=== PATIENT | male | born 1965 | race Two or more races ===

== ENCOUNTER 2024-10-31 05:39 | Day surgery (SDC) | payer OTHER ==
[~2024-10-31] VITALS: Ht 172.7 cm; Wt 89.1 kg
[2024-10-31] VITALS (8 sets, daily range): BP systolic 98–118; BP diastolic 46–68; PULSE 57–83; RESP 10–16; TEMP 98.3; O2SAT 93–100
[2024-10-31] MEDS: ceFAZolin 2gm/dext,iso 50mL 50 ML IV ONE (05:30)
[~2024-10-31 05:39] MED LIST: AMLO2.5T4 PO; ROSU20TA98 PO
--- NOTE | 2024-10-31 06:28 | ELECTROCARDIOGRAPH REPORT ---
[place] Test Date: 2024-10-31 Test Time: 06:24:31 Pat Name: ALLISON GUEVARA Department: [facility] Patient ID: [facility]-[id number] Room: Gender: M Upholstery Tech: ARTEMIO : [id number] Requested By: ELKE HAYWOOD Order Number: [id number] Reading MD: Dr. Theresa Bower Measurements Intervals [place] Rate: 54 P: 27 [place]: 190 QRS: 62 QRSD: 94 T: 0 QT: 390 QTc: 370 Interpretive Statements Sinus bradycardia Nonspecific T abnrm, anterolateral leads Electronically Signed On 10-31-2024 6:32:[address] Theresa Bower Please click the below link to view image of tracing.
[2024-10-31] MEDS: famotidine 20mg tablet PO ONE (06:48)
[2024-10-31] MEDS: ringers solution, lacted 1,000 ML IV SCH ×2 (06:49→13:06)
--- NOTE | 2024-10-31 07:04 | RADIOLOGY REPORT ---
CHEST RADIOGRAPH Indication: PREOP Technique: Single frontal view of the chest was obtained Comparison: None FINDINGS: Lines and Tubes: None Lungs: No focal consolidation. Pleura: No effusion. No pneumothorax. Cardiomediastinal contours: Unremarkable Bones: No acute osseous abnormality. IMPRESSION: No acute cardiopulmonary disease.
[2024-10-31 07:42] LABS: BASOPHILS % (AUTO) 0.6 % (0-1); EOSINOPHILS # (AUTO) 0.2 X10'3 (0-0.9); EOSINOPHILS % (AUTO) 2.8 % (0-6); LYMPHOCYTES # (AUTO) 1.7 X10'3 (1.1-4.8); LYMPHOCYTES % (AUTO) 21.9 % (21-51); MEAN CORPUSCULAR HEMOGLOBIN 30.4 PG (27.0-31.0); MEAN CORPUSCULAR HGB CONC 32.4 g/dL (33.0-36.5); MEAN PLATELET VOLUME 8.8 FL (7.4-10.4); MONOCYTES # (AUTO) 0.5 X10'3 (0-0.9); MONOCYTES % (AUTO) 6.4 % (2-12); NEUTROPHILS # (AUTO) 5.4 X10'3 (1.8-7.7); NEUTROPHILS % (AUTO) 68.3 % (42-75); PRE OP PLATELET COUNT 176 X10'3 (140-440); PRE OP WHITE BLOOD COUNT 7.9 10'3 (4.8-10.8); RED BLOOD COUNT 4.25 X10'6 (4.70-6.10); RED CELL DISTRIBUTION WIDTH 13.7 % (11.5-14.5)
[2024-10-31 07:58] LABS: PRE OP INR 1.1 INR; PRE OP PROTIME 10.8 SECONDS (9.0-12.0)
[2024-10-31 08:00] LABS: ALBUMIN 3.8 G/DL (3.4-5.0); ALBUMIN/GLOBULIN RATIO 1.2 (1.1-1.5); ALKALINE PHOSPHATASE 72 IU/L (46-116); BLOOD UREA NITROGEN 13 MG/DL (7-18); BUN/CREATININE RATIO 16.5 (10.0-20.0); CALCIUM 8.6 MG/DL (8.5-10.1); CHLORIDE 105 MMOL/L (99-107); CREATININE 0.79 MG/DL (0.60-1.10); PRE OP ALT 44 U/L (30-65); PRE OP ANION GAP 9 (8-16); PRE OP AST 19 U/L (10-37); PRE OP BILIRUB, TOTAL 0.3 MG/DL (0.0-1.0); PRE OP GLUCOSE 106 MG/DL (70-104); PRE OP SODIUM 140 MMOL/L (135-145); TOTAL PROTEIN 7.1 G/DL (6.4-8.2); eCRCL 100 ML/MIN; eGFR > 90 ML/MIN
[2024-10-31 08:04] LABS: BILIRUBIN,URINE NEGATIVE (Neg); CLARITY,URINE CLEAR (Clear); COLOR,URINE YELLOW (Yellow); GLUCOSE, URINE NEGATIVE (Neg); KETONES,URINE NEGATIVE (Neg); LEUKOCYTE ESTERASE ,URINE NEGATIVE (Neg); NITRITES, URINE NEGATIVE (Neg); OCCULT BLOOD,URINE NEGATIVE (Neg); PROTEIN,URINE NEGATIVE (Neg); UROBILINOGEN,URINE 0.2 E.U/dL (0.2-1.0)
[2024-10-31 08:05] LABS: UA COLLECTION TYPE VOIDED
[2024-10-31] MEDS ORDERED: BUPIVACAINE liposomal/PF 13.3 MG/ML 10mL vial IM ONE (08:18)
[2024-10-31] MEDS ORDERED: BUPIVAcaine/PF 5 mg/ml 10ml ONE (08:18)
[2024-10-31] MEDS ORDERED: ROPIVAcaine 0.5% (5mg/ml) 30ml vial ONE (08:21)
[2024-10-31] MEDS ORDERED: propofol inj 20 ML IV ONE (08:23)
[2024-10-31] MEDS ORDERED: LIDOcaine 2% (20mg/ml) 5ml vial ONE (08:23)
[2024-10-31] MEDS ORDERED: dexamethasone sod phosphate 4mg/ml inj. ONE (08:23)
[2024-10-31] MEDS ORDERED: ondansetron/PF 4mg/2ml inj ONE (08:24)
[2024-10-31] MEDS ORDERED: hydrALAZINE 20mg/ml inj. IV PRN (08:35)
[2024-10-31] MEDS ORDERED: morphine 2 MG/ML inj. syringe IV PRN (08:35)
[2024-10-31] MEDS ORDERED: fentaNYL/PF 50MCG/1 ML 2ML syringe IV PRN ×2 (08:35)
[2024-10-31] MEDS ORDERED: labetalol 20mg/4ml (5mg/ml) syringe IV PRN (08:35)
[2024-10-31] MEDS ORDERED: morphine 4 MG/ML inj SYRINge IV PRN (08:35)
[2024-10-31] MEDS ORDERED: ondansetron/PF 4mg/2ml inj IV PRN (08:35)
[2024-10-31] MEDS ORDERED: fentaNYL/PF 50MCG/1 ML 2ML syringe ONE ×3 (08:48→10:53)
[2024-10-31] MEDS ORDERED: midazolam 1 mg/ML 2ml injection ONE (08:48)
[2024-10-31] MEDS ORDERED: acetaminophen 1,000mg/100ml IV 100 ML IV ONE (09:11)
[2024-10-31] MEDS ORDERED: desflurane 240ml liquid inh. IH ONE (09:22)
[2024-10-31] MEDS ORDERED: vancomycin 1,000mg inj ONE (09:29)
[2024-10-31] MEDS ORDERED: ePHEDrine 50MG/ML INJ. ONE (09:32)
[2024-10-31] MEDS ORDERED: albumin (Human) 5% 250ml 250 ML IV ONE (09:38)
[2024-10-31] MEDS ORDERED: ROPIVAcaine 0.2% (10 MG/5 ML) BOLUS INJECTION POPLITEAL PRN (09:50)
--- NOTE | 2024-10-31 10:00 | ANESTHESIA RECORDS ---
Nerve Block Providers to CC CC: ELKE HAYWOOD DPM ~ Diagnosis: Nerve Block requested by: ELKE HAYWOOD DPM Neuraxial/Peripheral Nerve Block requested for Post-operative analgesia by Physician above DIAGNOSIS: Post-operative pain. (Body Area) Shoulder: [ ] Arm: [ ] Hand: [ ] Hip: [ ] Knee: [ ] Ankle: [____Left ] Foot: [ ] Leg: [ ] Abdomen: [ ] Other: [ ] Post-operative pain expected to be/is inadequately managed by oral or IV medicines. Regional anesthetic expected to facilitate rehabilitation and/or discharge from facility. Other:[ _] Procedure Performed: Femoral / Saphenous: Left Popliteal Lateral: Left Time out Done?: Yes Time of Time out: 08:45 Procedure Details: PROCEDURE DETAILS: Risks, benefits and alternatives explained Informed consent obtained, and patient wishes to proceed Conscious sedation with indicated monitors Patient positioned, pertinent anatomy defined, sterile technique used Needle used: [ ] 3 1/8 inch Stimuplex Ultra 22ga [ ] 4 inch Stimuplex Ultra 20ga [ X] For Adductor canal Block 6 inch Stimuplex Ultra 20ga [X ) For Sciatic nerve block] 6 inch, Quikbloc over the needle catheter set 20ga [ ] 4 inch Quikbloc over the needle catheter set 20ga [ ]Other: [ ] Loss of twitch @ [ 0.4 ]mA [X ] Single Injection Adductor canal block [X ] Sciatic nerve block Catheter Ultrasound Guidance Used: [x ] Yes [ ] No Attempts:[_1,1 ] Medicines injected: [ ]Clonidine Amt:[ ] [ ]Dexamethasone Amt:[ ] [ X ]Ropivacaine Amt:[_0.5% 30 c.c Sciatic nerve block ] [X ]Bupivacaine Amt:[_0.5% 20 c.c Adductor canal block ] [ ]Lidocaine Amt:[ ] [X ]Exparel 1.33%:[_10 c.c for adductor canal block ] [ ]Epinephrine Amt[ ] [ X ]Other: [_Dexmetomidine 50 mcg for sciatic nerve block ] Intermittent aspiration during local anesthetic administration No symptoms of intraneural or intravenous injection Patient tolerated procedure well Comments Adductor canal Block: Single shot. Left mid medoial thigh is examined with Ultrasound and Adductor canal and Vessels are identified. Needle is placed in the canal.After negative aspirations 30 c.c locla mix of Bupevaciane+Exaprel is injected. Spread is noted. Ultrasound image is captured,documented. Left Sciatic nerve block catheter: Left posterior thigh is examined with Ultrasound at popliteal area. Needle over catheter is aproached from lateral side. Foot contractions noted upto 0.4mamp current. Local mix of Ropivacaine+ Dexmetomidine is injected. Spread is noted. Needle is removed,catheter is secu red. Sterile dressings applied.Ultrasound image is captured,documented. On Q Pump is ordered. CARLA SALAZAR MD Oct 31, 2024 10:00
[2024-10-31] MEDS ORDERED: meperidine/PF 25mg/ml syringe ONE (10:22)
[2024-10-31] MEDS ORDERED: mupirocin 2% ointment 22GM ONE (12:17)
[2024-10-31] MEDS: ROPIVAcaine 0.2%/PF PUMP/bolus 545 ML POPLITEAL SCH (13:27)
--- NOTE | 2024-10-31 13:32 | OPERATIVE REPORT ---
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 * Progressive collapsing foot deformity, left. 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 * Progressive collapsing foot deformity, left. PROCEDURES: * Subtalar joint fusion with rigid internal fixation, left. * Total ankle replacement, left with Hobart 28 stem system. * Medial calcaneal displacement osteotomy, left calcaneus. INDICATIONS FOR SURGERY: Persistent pain, inability to perform activities of daily living and failed conservative therapy. The patient was fully informed of the risks, benefits, and alternatives to the procedures as well. ANESTHESIA: General with an adductor and popliteal block. ESTIMATED BLOOD LOSS: Less than 5 mL. Capillary refill time was noted to be instantaneous upon release of the tourniquet. There were no complications during the surgery. Hemostasis was achieved with the use of a tourniquet at the level of the left thigh at 250 mmHg. The patient was given 2 g of Ancef 30 minutes prior to skin incision. DESCRIPTION OF PROCEDURE: The patient was escorted to the operating room suite where he was prepared and draped in the usual sterile technique. He was placed in the supine position. The tourniquet was inflated after exsanguinating the left lower extremity. The first area of surgical approach was an anterior ankle incision about 120 mm in length. The incision was made between the retinaculum of the tibialis anterior and the extensor hallucis longus tendon. Neurovascular structures were protected throughout the procedure. Any bleeding vessels were Bovie. An arthrotomy was performed at the tibiotalar joint and then an ankle replacement system was inserted utilizing the Hobart 28 stemmed total ankle system with a #3 regular tibia tray, size 2 talus component, and a 6-mm polyethylene insert. The implant was inserted according to the steps in the surgeon's manual from Hobart 28 total ankle system. There was no deviation in technique. Cement was utilized for both the tibial implant and the talar implant. Visual inspection was performed at the level of the tibiotalar joint, which identified patches of full-thickness articular cartilage loss at different areas of the joint. Good range of motion was noted passively at the end of this part of the procedure. Pulse lavage was used throughout the case with Betadine in the solution. Vancomycin powder 1 g was also doused into the surgical incision wound site deep into the tissue planes before closing the tissues in layers. Tourniquet was deflated for 15 minutes and the next part of the procedure consisted of a separate incision for the subtalar joint fusion. This was done by way of performing an arthrotomy of the sinus tarsi and posterior subtalar joint. Hintermann distractor was used to distract the joint. A #4 rotary charlie was used to remove the articulating cartilage that was remaining at the talocalcaneal surface level. 5 mL of DBM was used to augment and facilitate in the fusion process. Two 7.0 cannulated screws were utilized at the end of the case after performing the next part of the procedure, which was a medial calcaneal displacement osteotomy. This was another incision, which was needed to gain access to the posterior tuber of the calcaneus from the lateral approach. A large saw was used to make the osteotomy across the tuber of the calcaneus. The sural nerve was protected throughout the procedure. The tuber was then shifted medially about 8-10 mm. Provisional fixation was achieved with the use of guide pins and then final fixation for both the osteotomy and the subtalar joint fusion was with two 7.0 cannulated screws, partially threaded, and headless screws. Rigid internal fixation and compression was achieved with these 2 screws. A C-arm was used throughout the case. Good alignment was noted for both the total ankle replacement components as well as for the deep screws for the osteotomy and subtalar joint fusion. Tourniquet was deflated. Capillary refill time was noted to be instantaneous. The tissues were closed in layers. The patient had a mupirocin ointment applied to the surgical sites and a Faraz splint was also applied with the foot at 90 degrees to the leg. The patient tolerated the procedure well with no complications noted. Arnaud Rivera DPM TID: [id number] RECEIPT: [id number] MALI MARTE
[2024-11-01] MEDS ORDERED: atorvastatin 20mg tablet PO SCH (08:00)
[2024-11-01] MEDS ORDERED: amLODIPine 5mg tablet PO SCH (08:00)
== END 2024-10-31 15:22 | disposition home or self-care (01) ==
LOC: PAS 05:39 → ORTHO 4S 14:14 → PAS 15:14
PROVIDERS: ATTEND Podiatrist Foot & Ankle Surgery
DX: M19.072 Primary osteoarthritis, left ankle and foot (principal); I10 Essential (primary) hypertension; M21.6X2 Other acquired deformities of left foot; Z79.899 Other long term (current) drug therapy; Z79.01 Long term (current) use of anticoagulants; Z98.890 Other specified postprocedural states; G89.18 Other acute postprocedural pain; Z85.528 Personal history of other malignant neoplasm of kidney
CPT/HCPCS: 27702; 28300; 28725; 36415; 64445; 64447; 71045; 73610; 80053; 81003; 85025; 85610; 85730; 93005; A6223; C1713; C1776; J0131; J0665; J0666; J1100; J2003; J2175; J2250; J2405; J2704; J2795; J3010; J3370; J3490; J7030; J7120; P9045; Z7506; Z7508; Z7512; 76000; A4618; A6253; A6446; A6449; A6455; A7000

== ENCOUNTER 2025-01-23 06:20 | Day surgery (SDC) | payer OTHER ==
[~2025-01-23] VITALS: Ht 172.7 cm; Wt 90.1 kg
[2025-01-23] VITALS (12 sets, daily range): BP systolic 90–115; BP diastolic 52–68; PULSE 54–78; RESP 11–16; TEMP 98; O2SAT 6–100
[2025-01-23] MEDS: ceFAZolin 2gm/dext,iso 50mL 50 ML IV ONE (05:30)
[~2025-01-23 06:20] MED LIST changes: +AMLO-507 PO; -AMLO2.5T4 PO
[2025-01-23] MEDS ORDERED: BUPIVAcaine 2.5mg/ml inj 50ml vial (contains preservative) ONE (06:46)
[2025-01-23] MEDS ORDERED: bacitracin 15gm ointment TP ONE (06:47)
[2025-01-23] MEDS ORDERED: BUPIVAcaine/PF 2.5mg/ml (0.25%) 10ml vial ONE (06:49)
[2025-01-23] MEDS: ringers solution, lacted 1,000 ML IV SCH (07:20)
[2025-01-23] MEDS ORDERED: midazolam 1 mg/ML 2ml injection ONE (08:36)
[2025-01-23] MEDS ORDERED: fentaNYL/PF 50MCG/1 ML 2ML syringe ONE (08:36)
[2025-01-23] MEDS ORDERED: ROPIVAcaine 0.5% (5mg/ml) 30ml vial ONE (08:43)
[2025-01-23] MEDS ORDERED: propofol inj 20 ML IV ONE (08:43)
[2025-01-23] MEDS ORDERED: rocuronium 10mg/ml inj IV ONE (08:43)
[2025-01-23] MEDS ORDERED: dexamethasone sod phosphate 4mg/ml inj. ONE (08:43)
[2025-01-23] MEDS ORDERED: LIDOcaine 1%/PF 5ML 10 MG/ML VIAL ONE (08:43)
[2025-01-23] MEDS ORDERED: labetalol 20mg/4ml (5mg/ml) syringe IV PRN (09:40)
[2025-01-23] MEDS ORDERED: ondansetron/PF 4mg/2ml inj IV PRN (09:40)
[2025-01-23] MEDS ORDERED: meperidine/PF 25mg/ml syringe IV PRN ×3 (09:40)
[2025-01-23] MEDS ORDERED: enalaprilat 1.25mg/ml 2ml vial IV PRN (09:40)
[2025-01-23] MEDS ORDERED: ringers solution, lacted 1,000 ML IV SCH (09:40)
[2025-01-23] MEDS ORDERED: morphine 4 MG/ML inj SYRINge IV PRN (09:40)
--- NOTE | 2025-01-23 09:41 | ANESTHESIA RECORDS ---
Nerve Block Providers to CC ~ Diagnosis: Nerve Block requested by: ELKE HAYWOOD DPM Neuraxial/Peripheral Nerve Block requested for Post-operative analgesia by Physician above DIAGNOSIS: Post-operative pain. (Body Area) Shoulder: [ ] Arm: [ ] Hand: [ ] Hip: [ ] Knee: [ ] Ankle: [ ] Foot: [ ] Leg: [ ] Abdomen: [ ] Other: [ ] Post-operative pain expected to be/is inadequately managed by oral or IV medicines. Regional anesthetic expected to facilitate rehabilitation and/or discharge from facility. Other:[ ] Time out Done?: Yes Time of Time out: 08:37 Procedure Details: PROCEDURE DETAILS: Risks, benefits and alternatives explained Informed consent obtained, and patient wishes to proceed Conscious sedation with indicated monitors Patient positioned, pertinent anatomy defined, sterile technique used Needle used: [ ] 3 1/8 inch Stimuplex Ultra 22ga [x ] 4 inch Stimuplex Ultra 20ga [ ] 6 inch Stimuplex Ultra 20ga [ ] 6 inch, Quikbloc over the needle catheter set 20ga [ ] 4 inch Quikbloc over the needle catheter set 20ga [ ]Other: [ ] Loss of twitch @ [ 0.4 ]mA [x ] Single Injection [ ] Catheter Ultrasound Guidance Used: [x ] Yes [ ] No Attempts:[ once ] Medicines injected: [x ]Clonidine Amt:[ 80 mcgs ] [x ]Dexamethasone Amt:[ 3 mgs ] [x ]Ropivacaine Amt:[ 0.5 % 30 cc ] [ ]Bupivacaine Amt:[ ] [ ]Lidocaine Amt:[ ] [ ]Exparel 1.33%:[ ] [ ]Epinephrine Amt[ ] [ ]Other: [ ] Intermittent aspiration during local anesthetic administration No symptoms of intraneural or intravenous injection Patient tolerated procedure well Comments Left Popliteal fossa Block Pt in Rt lateral position with Left Leg flexed at 90 Degrees. Lateral approach. Ultrasound probe placed back of thigh 2 inches above the knee joint. Easy visualization of the Sciatic nerve. 1% xylocaine local anesthetic. Easy visualization of Spreading of local anesthetic anterior and posterior to the Sciatic nerve sub paraneurally inside sciatic nerve sheath. Meaningful conversation t throughout. No Pain or discomfort during injection. HANS LEVINE MD Jan 23, 2025 09:41
[2025-01-23] MEDS ORDERED: glycopyrrolate 0.2mg/ml inj ONE (09:53)
--- NOTE | 2025-01-23 10:11 | OPERATIVE REPORT ---
DATE OF SURGERY: 01/23/2025 DICTATING PHYSICIAN: Arnaud Rivera DPM PREOPERATIVE DIAGNOSIS: Painful deep implants, left foot. POSTOPERATIVE DIAGNOSIS: Painful deep implants, left foot. PROCEDURE: Removal of two screws, left foot. C-arm was used during the case. The patient was given a popliteal block preoperatively. The patient was given 2 g of Ancef IV 30 minutes prior to skin incision. ESTIMATED BLOOD LOSS: Less than 5 mL. COMPLICATIONS: None. Capillary refill time was noted to be instantaneous upon conclusion of the case for the digits to the left foot. INDICATIONS FOR SURGERY: Pain related to hardware. DESCRIPTION OF PROCEDURE: The patient was escorted to the operating room suite where he was prepared and draped in the usual sterile technique. The patient was placed in the prone position. A posterior approach was used to gain access to the posterior aspect of the calcaneus. Two screws were identified. C-arm was used to help visualize the screws intraoperatively. The two screws were removed in toto. The area was irrigated with copious amounts of sterile saline and tissues were then closed in layers. A final fluoroscan picture was taken to show that the screws were removed at the level of the left calcaneal talar area. The appropriate postoperative dressings were applied and the patient was then escorted to PACU with the appropriate postoperative instructions. Arnaud Rivera DPM TID: [id number] RECEIPT: [id number] /TAR
== END 2025-01-23 11:58 | disposition home or self-care (01) ==
LOC: PAS 06:20
PROVIDERS: ATTEND Podiatrist Foot & Ankle Surgery
DX: T84.84XA Pain due to internal orthopedic prosthetic devices, implants and grafts, initial encounter (principal); G89.18 Other acute postprocedural pain; I10 Essential (primary) hypertension; Z79.899 Other long term (current) drug therapy; Z90.5 Acquired absence of kidney; Y79.2 Prosthetic and other implants, materials and accessory orthopedic devices associated with adverse incidents; Y92.89 Other specified places as the place of occurrence of the external cause
CPT/HCPCS: 20680; 64445; 73620; A6222; J1100; J2250; J2405; J2704; J2710; J2795; J3010; J3490; J7030; J7120; Z7506; Z7508; Z7512; 76000; A4215; A4618; A6253; A6449; A7000